=== PATIENT | male | born 1985 | race Caucasian/White ===

== ENCOUNTER 2016-12-09 17:19 | Emergency (ER) | payer OTHER ==
[~2016-12-09] VITALS: Ht 175.3 cm; Wt 101.7 kg
[~2016-12-09 17:19] MED LIST: AMPH10TA2 PO; AMPH30TA2 PO; FLUO20CA35 PO; MTR800 PO; OXYC-57 PO
[2016-12-09 17:23] VITALS: TEMP 36.7; Ht 175.3 cm; Wt 101.7 kg
[2016-12-09] MEDS ORDERED: KETOROLAC TROMETHAMINE 30 MG/ML VIAL IV STA (17:31)
[2016-12-09] MEDS ORDERED: ONDANSETRON INJ 2 MG/ML 2 ML VIAL IV STA (17:31)
[2016-12-09] MEDS ORDERED: SODIUM CHLORIDE 0.9% 1000ML 1,000 ML IV STA (17:31)
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
[2016-12-09] MEDS ORDERED: NAPR250T2 PO (17:44)
[2016-12-09] MEDS ORDERED: MoRPHine SULFATE 4 MG/ML 1 ML CARP\\VIAL IV PRN (17:45)
[2016-12-09] MEDS ORDERED: DEXAMETHASONE SOD INJ 10 MG/ML VIAL IV ONE (17:45)
[2016-12-09 18:03] LABS: BASO % 0.2 %; BASO ABS # 0.02 K/uL (0-0.2); COMPLETE YES; EOS % 0.8 %; HEMATOCRIT 43.9 % (42-52); IG% 0.2 %; LYMPH % 29.6 %; LYMPH ABS # 2.58 K/uL (1.2-3.4); MEAN CELL VOLUME 86.9 fL (80-100); MEAN CORPUSCULAR HEMOGLOBIN 31.1 pg (25-34); MEAN CORPUSCULAR HGB CONC 35.8 g/dl (32-36); MONO % 7.1 %; NEUT % 62.1 %; PLATELET COUNT 280 K/uL (130-400); RED BLOOD COUNT 5.05 M/uL (4.7-6.1); WHITE BLOOD COUNT 8.72 K/uL (4.8-10.8)
[2016-12-09 18:22] LABS: ALT/SGPT 42 U/L (12-78); AST/SGOT 17 U/L (15-37); BLOOD UREA NITROGEN 18 mg/dl (7-18); BUN/CREATININE RATIO 17.6 (10-20); CALCIUM 8.9 mg/dl (8.5-10.1); CARBON DIOXIDE 26 mmol/L (21-32); CHLORIDE 105 mmol/L (98-107); GLUCOSE 93 mg/dl (70-99); POTASSIUM 3.6 mmol/L (3.5-5.1); SODIUM 140 mmol/L (136-145)
[2016-12-09 18:24] LABS: ALKALINE PHOSPHATASE 123 U/L (45-117)
[2016-12-09 18:58] VITALS: BP 136/90; PULSE 67; O2SAT 96
--- NOTE | 2016-12-09 18:59 | DIAGNOSTIC IMAGING REPORT ---
MRI LUMBAR SPINE W/O CONTRAST CLINICAL HISTORY: Persistent severe low back pain, unresponsive to conservative measures TECHNIQUE: Sagittal and axial T1, T2 and STIR images were obtained. COMPARISON STUDY: No previous studies for comparison. OBSERVATIONS: The vertebral bodies and posterior elements appear intact. There is no abnormal bony signal present to suggest a marrow replacement process. L1-2: No disc protrusions or extrusions. No evidence of spinal canal or neural foraminal compromise. L2-3: No disc protrusions or extrusions. No evidence of spinal canal or neural foraminal compromise. L3-4: No disc protrusions or extrusions. No evidence of spinal canal or neural foraminal compromise. L4-5: There is a small right lateral disc bulge/protrusion. There is no spinal stenosis. There is minor right-sided foraminal narrowing. L5-S1: There is a mild circumferential disc bulge. There is no significant spinal or foraminal stenosis. The conus medullaris and cauda equina appear normal. IMPRESSION: 1. Small right lateral disc bulge/protrusion at the L4-5 level with mild right-sided foraminal narrowing 2. Mild circumferential disc bulge the L5-S1 level. 3. No evidence of spinal stenosis 4. No evidence of pathologic marrow replacement Electronically signed by: Hardy Díaz M.D. 12/09/2016 6:57 PM Dictated Date/Time: 12/09/2016 6:54 PM
[2016-12-09] MEDS ORDERED: OXYC1TAB3 PO (19:17)
[2016-12-09] MEDS ORDERED: PRED20TA2 PO (19:17)
[2016-12-09] MEDS ORDERED: OMEP20CA9 PO (19:17)
[2016-12-09] MEDS ORDERED: OXYCODONE IR HOME PACK PO ONE (19:45)
[2017-02-02] MEDS ORDERED: CYCL10TA6 PO (11:12)
[2017-02-02] MEDS ORDERED: ETOD500T95 PO (11:12)
== END 2016-12-09 19:48 | disposition home or self-care (01) ==
LOC: C.EDB 17:20
DX: M51.86 Other intervertebral disc disorders, lumbar region (principal); F17.210 Nicotine dependence, cigarettes, uncomplicated

== ENCOUNTER → 2017-04-20 | Outpatient (CLI) | payer OTHER ==
[~2017-04-20] MED LIST changes: +CYCL10TA6 PO; -FLUO20CA35 PO; -OXYC-57 PO
[2017-04-20 17:37] LABS: BASO % 0.4 %; BASO ABS # 0.04 K/uL (0-0.2); COMPLETE YES; EOS % 1.1 %; HEMATOCRIT 46.2 % (42-52); IG% 0.5 %; LYMPH % 34.6 %; LYMPH ABS # 3.44 K/uL (1.2-3.4); MEAN CELL VOLUME 88.3 fL (80-100); MEAN CORPUSCULAR HGB CONC 35.1 g/dl (32-36); MEAN PLATELET VOLUME 10.3 fL (7.4-10.4); NEUT % 57.4 %; PLATELET COUNT 299 K/uL (130-400); RED BLOOD COUNT 5.23 M/uL (4.7-6.1); WHITE BLOOD COUNT 9.95 K/uL (4.8-10.8)
[2017-04-20 18:22] LABS: BLOOD UREA NITROGEN 15 mg/dl (7-18); BUN/CREATININE RATIO 18.2 (10-20); CARBON DIOXIDE 22 mmol/L (21-32); CHLORIDE 109 mmol/L (98-107); CREATININE 0.84 mg/dl (0.60-1.40); GLUCOSE 137 mg/dl (70-99); SODIUM 142 mmol/L (136-145)
[2017-04-20 18:38] LABS: LYME DISEASE AB IGG NEG (NEG)
[2017-04-20 18:41] LABS: LYME DISEASE AB IGM NEG (NEG)
[2017-04-20 18:42] LABS: CALCIUM 9.6 mg/dl (8.5-10.1)
== END ==
LOC: C.LABPVFM 13:43
PROVIDERS: ATTEND Nurse Practitioner
DX: M25.50 Pain in unspecified joint (principal); R53.83 Other fatigue; M79.1 Myalgia

== ENCOUNTER 2018-06-23 17:43 | Emergency (ER) | payer OTHER ==
[~2018-06-23] VITALS: Ht 175.3 cm; Wt 103.8 kg
[~2018-06-23 17:43] MED LIST changes: -CYCL10TA6 PO; -MTR800 PO; +OXYC-90 PO
[2018-06-23 17:49] VITALS: TEMP 36.9; Ht 175.3 cm; Wt 103.8 kg
[2018-06-23] MEDS ORDERED: HYDROmorphone INJ 1 MG/ML SYR IM STA (18:40)
[2018-06-23] MEDS ORDERED: DEXAMETHASONE INJ 10 MG in SYRINGE 0 ML IM STA (18:40)
[2018-06-23] MEDS ORDERED: KETOROLAC TROMETHAMINE 60 MG/2 ML VIAL IM STA (18:40)
[2018-06-23] MEDS ORDERED: DEXAMETHASONE SOD INJ 10 MG/ML VIAL ONE (18:50)
[2018-06-23] MEDS ORDERED: NORCO 5/325MG HOME PACK PO STA (19:59)
[2018-06-23] MEDS ORDERED: HYDR-5688 PO (20:01)
[2018-06-23] MEDS ORDERED: METH4PAK PO (20:01)
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
[2018-06-23 20:17] VITALS: BP 141/103; PULSE 70; O2SAT 95
== END 2018-06-23 20:18 | disposition home or self-care (01) ==
LOC: C.EDB 17:44 → C.EDD 20:18
DX: M54.5 Low back pain (principal); Z88.2 Allergy status to sulfonamides

== ENCOUNTER 2022-12-27 06:09 | Observation (INO) ==
--- NOTE | 2022-12-09 09:35 | PAT Medication Instructions ---
Medication Instructions Date of Service December 09, 2022 Home Medications Medication Instructions Recorded apixaban 5 mg tablet 5 mg PO BID #60 tabs 05/31/22 cyclobenzaprine 10 mg tablet 10 mg PO TID PRN muscle spasm #90 09/17/22 tabs testosterone cypionate 200 mg/mL 100 mg (0.5 mL) subcut Q7D #2 mL 10/05/22 intramuscular oil escitalopram oxalate 20 mg tablet 20 mg PO HS #90 tabs 10/20/22 gabapentin 400 mg capsule 400 mg PO TID PRN pain #90 caps 10/20/22 buspirone 10 mg tablet 10 mg PO TID PRN anxiety #90 tabs 11/18/22 oxycodone 5 mg tablet 5 - 10 mg PO Q8H PRN pain 30 days 11/18/22 #150 tabs apixaban 5 mg tablet 5 mg PO BID cyclobenzaprine 10 mg tablet 10 mg PO TID PRN muscle spasm testosterone cypionate 200 mg/mL intramuscular oil 100 mg (0.5 mL) subcut Q7D escitalopram oxalate 20 mg tablet 20 mg PO HS gabapentin 400 mg capsule 400 mg PO TID PRN pain buspirone 10 mg tablet 10 mg PO TID PRN anxiety oxycodone 5 mg tablet 5 - 10 mg PO Q8H PRN pain acetaminophen 500 mg tablet 1,000 mg PO Q6H PRN Pain Continue as directed testosterone cypionate 200 mg/mL intramuscular oil 100 mg (0.5 mL) subcut Q7D ASK your prescriber and surgeon apixaban 5 mg tablet 5 mg PO BID DO NOT take the morning of surgery cyclobenzaprine 10 mg tablet 10 mg PO TID PRN muscle spasm Take morning of surgery With a small sip of water, OTHERWISE NOTHING TO EAT OR DRINK AFTER MIDNIGHT: gabapentin 400 mg capsule 400 mg PO TID PRN pain (if needed) buspirone 10 mg tablet 10 mg PO TID PRN anxiety (if needed) oxycodone 5 mg tablet 5 - 10 mg PO Q8H PRN pain (if needed) acetaminophen 500 mg tablet 1,000 mg PO Q6H PRN Pain (if needed) Take evening before surgery cyclobenzaprine 10 mg tablet 10 mg PO TID PRN muscle spasm (if needed) escitalopram oxalate 20 mg tablet 20 mg PO HS gabapentin 400 mg capsule 400 mg PO TID PRN pain (if needed) buspirone 10 mg tablet 10 mg PO TID PRN anxiety (if needed) oxycodone 5 mg tablet 5 - 10 mg PO Q8H PRN pain (if needed) acetaminophen 500 mg tablet 1,000 mg PO Q6H PRN Pain (if needed) Other Notes If you have any questions please call us at [phone] or [phone] or [phone] or [phone]
--- NOTE | 2022-12-13 09:46 | Anesthesiology Consultation ---
Date of Service December 13, 2022 Assessment & Plan (1) Encounter for pre-operative examination: - awaiting PCP clearance. - Case discussed with Dr. Aguilar who advised patient have PCP clearance prior to surgery. Workload note completed. Pt and surgeon's office made aware. Chart Review Chart Review: Pending: Refer to Additional Notes / Consult section and Patient seen in Pre Admission Testing Teaching & Discussion Pre-Anesthesia Teaching/Discussion Notes: Instructed NPO after midnight before surgery, except medications with 15 cc of water. Medication instructions provided according to the PAT guidelines. History Surgery Operation Date: 12/27/22 12:25 Proposed Procedures p C5-C7 Anterior Cervical Discectomy and Fusion, Spinal Cord Monitoring - Denilson Bragg DO Height/Weight Height: 5 ft 9 in Weight: 122.1 kg Allergies Allergy/AdvReac Type Severity Reaction Status Date / Time Sulfa (Sulfonamide Allergy Unknown FAMILY HX Verified 12/08/22 11:37 Antibiotics) OF ALLERGY Medications Home Medications Medication Instructions Recorded Confirmed Last Taken apixaban 5 mg tablet 5 mg PO BID #60 tabs 05/31/22 12/08/22 Unknown cyclobenzaprine 10 mg tablet 10 mg PO TID PRN muscle spasm #90 09/17/22 12/08/22 Unknown tabs testosterone cypionate 200 mg/mL 100 mg (0.5 mL) subcut Q7D #2 mL 10/05/22 12/08/22 Unknown intramuscular oil escitalopram oxalate 20 mg tablet 20 mg PO HS #90 tabs 10/20/22 12/08/22 Unknown gabapentin 400 mg capsule 400 mg PO TID PRN pain #90 caps 10/20/22 12/08/22 Unknown buspirone 10 mg tablet 10 mg PO TID PRN anxiety #90 tabs 11/18/22 12/08/22 Unknown oxycodone 5 mg tablet 5 - 10 mg PO Q8H PRN pain 30 days 11/18/22 12/08/22 Unknown #150 tabs acetaminophen 500 mg tablet 1,000 mg PO Q6H PRN Pain 12/08/22 12/08/22 Unknown Past Medical History Medical History (Updated 12/13/22 @ 10:00 by Lroeto Monroy PA-C) Anticoagulated eliquis bid for hx of renal blood clot in 2020 Cervical radicular pain Chronic headaches Depression with anxiety Fatty liver pt states he quit drinking almost 3 yrs ago GERD (gastroesophageal reflux disease) if eats spicy foods late Hearing loss in right ear History of renal vein thrombosis pt states happened in 2020 "they think due to narrowing of blood vessels to my kidney"--admitted to [facility] in [place], [place] for 1 wk--reason for eliquis Hypertension averages elevated readings, denies current antihypertensives Kidney stone hx of Perirectal abscess hx of ? PTSD (post-traumatic stress disorder) Sleep apnea hx of prior to UPP--pt states he does not use any device Tinnitus of both ears Patient denies h/o stroke, seizures, heart attack, heart failure, DM or blood transfusions. Exercise / Class Metabolic Activity II 4-5 Yardwork/Stairs/Walk up hill (shortness of breath walking up a hill ongoing x 1 yr; denies change or worsening; denies chest discomfort) Past Family History Family History Other No family history of adverse response to anesthesia Denies family history of Ovarian cancer Prostate cancer Myocardial infarction Breast cancer Colorectal cancer Past Surgical History Surgical History History of appendectomy History of excision of pilonidal cyst ? pt unsure History of incision and drainage ? pt unsure History of tonsillectomy @ same time as UPP History of uvulopalatopharyngoplasty History of wisdom tooth extraction Hx of vasectomy Past Anesthesia History No Hx of Anesthesia Complications and No Family Hx of Anesthesia Complications History of PONV No Hx of PONV and No Hx of Motion Sickness Social History Smoking Status: Current every day smoker tobacco type: cigarettes Smoking cigarettes per day: 20 a day (advised on policy) Do You Dip or Chew Tobacco: No Hx Alcohol Use: No (quit drinking almost 3 yrs ago) Hx Substance Use: Yes (smokes marijuana intermittently for anxiety) substance use type: marijuana Last Used Substance: Unknown Last Used Substance Other:: last used at least 4 months ago (advised on policy) Review of Systems Patient denies chest pain, fever, chills, cough, wheezing, or palpitations. Physical Exam Vital Signs Vitals BP 144/91 P 87 TEMP 98.7 SP02 95% on RA RESP 17 Physical Full cervical extension range of motion without pain TMD 3.5 finger breadths Mallampati Score 3 Dentition: several chipped teeth; denies loose teeth, caps/crowns, implants or bridges Lungs: normal respiratory effort. Clear throughout to auscultation, no adventitious breath sounds Cardiac: regular rate and rhythm, no murmurs noted Carotid arteries: negative bruit bilat Lab Results Anesthesia Preop Results Results Anesthesia Widget: WBC 8.84 K/ul (4.8-10.8) 12/13/22 Hgb 17.1 g/dl (14.0-18.0) 12/13/22 Hct 49.8 % (42.0-52.0) 12/13/22 Plt 288 K/uL (130-400) 12/13/22 Na 138 mmol/L (136-145) 12/13/22 K 3.6 mmol/L (3.5-5.1) 12/13/22 Cl 105 mmol/L (98-107) 12/13/22 CO2 27 mmol/L (21-32) 12/13/22 BUN 8 mg/dl (6-23) 12/13/22 Creat 0.90 mg/dl (0.6-1.4) 12/13/22 Glucose Level 102 mg/dl (70-99(Fasting)) H 12/13/22 PT 10.3 Seconds (9.0-12.0) 12/13/22 PTT 29.1 Seconds (21.0-31.0) 12/13/22 INR 1.0 (0.9-1.1) 12/13/22 Urine Color Yellow 12/13/22 Urine Appearance Clear (Clear) 12/13/22 Urine pH 6.0 (4.5-7.5) 12/13/22 Urine Specific [place] 1.022 (1.000-1.030) 12/13/22 Urine Protein Negative (Negative) 12/13/22 Urine Glucose (UA) Negative (Negative) 12/13/22 Urine Ketones Trace (Negative) H 12/13/22 Urine Blood Negative (Negative) 12/13/22 Urine Nitrite Negative (Negative) 12/13/22 Urine Bilirubin Negative (Negative) 12/13/22 Urine Urobilinogen Negative (Negative) 12/13/22 Urine Leukocyte Esterase Negative (Negative) 12/13/22 Blood Type O Positive 12/13/22 Antibody Screen NEGATIVE 12/13/22 Testing Electrocardiogram Date: 12/13/22 NSR with sinus arrhythmia, rate 86 bpm Chest X-Ray Date: 12/13/22 Lung volumes are normal. Lungs are clear. There is no pneumothorax or pleural effusion. Cardiac size is normal. Mediastinal contours are normal. There is no evidence for pulmonary edema. IMPRESSION: No acute cardiopulmonary findings. Echocardiogram Date: 04/21/21 EF 55-60% Normal LV wall motion Septal motion is consistent with conduction abnormality No hemodynamically significant valvular disease is present Cervical Spine Date: 09/09/22 MRI Stable straightened cervical alignment with persistent bony discogenic degenerative changes at C3-4, C4-5, C5-6, C6-7 Disc bulge-osteophyte complexes at C4-5, C5-6, C6-7 contact or flatten ventral cervical cord and contributes to severe central spinal canal stenosis at these levels COVID-19 Risk Screen Screening Information COVID-19 Screen Date: 12/13/22 Exposure 21 Days Family/Household +COVID Last 21 Days: No Exposure 10 Days Any COVID Exposure Last 10 Days: No Symptoms Last 10 Days Experienced COVID Sx Last 10 Days: No + COVID 0-90 Days COVID + in Last 0-90 Days: No
[~2022-12-27 06:09] MED LIST changes: +ACETAMINOPHEN 500 MG TAB PO SCH; -AMPH10TA2 PO; -AMPH30TA2 PO; +CeleBREX 200 MG CAP PO SCH; +GABAPENTIN 900 MG DOSE PO SCH; +LR 15ML/HR IV SCH; -OXYC-90 PO; +ceFAZolin 2000MG 2,000 MG/15 ML SYR IV SCH
[2022-12-27] MEDS ORDERED: LIDOCAINE 2% JELLY 5 ML TUBE EXT ONE (06:53)
[2022-12-27] MEDS ORDERED: fentaNYL citrate 100 MCG/2 ML VIAL ONE (07:06)
[2022-12-27] MEDS ORDERED: MIDAZOLAM HCL 1 MG/ML 2ML VIAL ONE (07:06)
[2022-12-27] MEDS ORDERED: KETAMINE 50 MG/5 ML SYRINGE ONE (07:06)
[2022-12-27] MEDS ORDERED: ceFAZolin 330 MG/ML 1 GM VIAL ONE (07:33)
--- NOTE | 2022-12-27 07:33 | History & Physical Bridge Note ---
Date of Service December 27, 2022 History & Physical Bridge Note I have examined the patient, reviewed the History & Physical and in the interval since the performance of the History & Physical I have noted the following changes of clinical significance: no changes noted
--- NOTE | 2022-12-27 07:35 | History & Physical Report ---
Date of Service December 27, 2022 Assessment & Plan (1) Cervical stenosis of spinal canal: Plan: C5-C7 anterior cervical discectomy and fusion History of Present Illness Chief Complaint: Neck and arm pain Primary Care Provider: Bhupinder Ackerman DO This is a 37-year-old male who presents with chronic persistent neck and arm pain after failing course of nonoperative care is here for surgical invention. Allergies Allergy/AdvReac Type Severity Reaction Status Date / Time No Known Allergies Allergy Unverified 12/27/22 06:45 Home Medications Medication Instructions Recorded Confirmed Type cyclobenzaprine 10 mg tablet 10 mg PO TID PRN muscle spasm #90 09/17/22 12/27/22 Rx tabs testosterone cypionate 200 mg/mL 100 mg (0.5 mL) subcut Q7D #2 mL 10/05/22 12/27/22 Rx intramuscular oil gabapentin 400 mg capsule 400 mg PO TID PRN pain #90 caps 10/20/22 12/08/22 Rx buspirone 10 mg tablet 10 mg PO TID PRN anxiety #90 tabs 11/18/22 12/27/22 Rx acetaminophen 500 mg tablet 1,000 mg PO Q6H PRN Pain 12/08/22 12/08/22 History oxycodone 5 mg tablet 5 - 10 mg PO Q8H PRN pain 30 days 12/17/22 12/27/22 Rx #150 tabs apixaban 5 mg tablet (Eliquis) 5 mg PO BID 12/27/22 12/27/22 History escitalopram oxalate 20 mg tablet 20 mg PO DAILY 12/27/22 12/27/22 History (Lexapro) Past Med/Surg History Medical History (Updated 12/27/22 @ 07:34 by Denilson Bragg DO) Anticoagulated eliquis bid for hx of renal blood clot in 2020 Cervical radicular pain Chronic headaches Depression with anxiety Fatty liver pt states he quit drinking almost 3 yrs ago GERD (gastroesophageal reflux disease) if eats spicy foods late Hearing loss in right ear History of renal vein thrombosis pt states happened in 2020 "they think due to narrowing of blood vessels to my kidney"--admitted to [facility] in [place], [place] for 1 wk--reason for eliquis Hypertension averages elevated readings, denies current antihypertensives Kidney stone hx of Perirectal abscess hx of ? PTSD (post-traumatic stress disorder) Sleep apnea hx of prior to UPP--pt states he does not use any device Tinnitus of both ears Surgical History History of appendectomy History of excision of pilonidal cyst ? pt unsure History of incision and drainage ? pt unsure History of tonsillectomy @ same time as UPP History of uvulopalatopharyngoplasty History of wisdom tooth extraction Hx of vasectomy Family History Other No family history of adverse response to anesthesia Denies family history of Ovarian cancer Prostate cancer Myocardial infarction Breast cancer Colorectal cancer Social History Smoking Status: Current every day smoker Tobacco Type: Cigarettes Age Started Using Tobacco: 18; packs per day: 1; Cigarettes Per Day: 20; Second Hand Exposure: No; Do You Dip or Chew Tobacco: No; Tobacco Cessation Education Requested by Patient: No Hx Alcohol Use: No Hx Substance Use: No Preferred Language: Kittitian Communication Ability: Effective Visual Impairment: No Limitations Hearing Ability: Normal Product Safety Expert Required: No Beliefs That Will Affect Care: None marital status: Single Current Living Situation: Family Current Living Situation Comment: Lives with Step Dad and son. current occupational status: employed current occupation: Self Employed How many Children do You have: 1 Other Information That Helps Us Care for You: No Feels Safe at Home: Yes Safety Concerns: Feels Safe At This Time Childhood Exposure to Second-Hand Smoke: Yes caffeine: Yes (Engery Drinks) during the past year weight has: remained stable Dental Care, Regularly: No Physical Activity Frequency: Does not Exercise Seatbelt Use: always Sunscreen Use: No Do you think of yourself as: straight/heterosexual Sexual Activity: has been sexually active, but not for at least 12 months Gender Identity: Male Assistive Devices: None Physical Exam Physical Exam: Patient is alert and oriented Heart regular rhythm Lungs clear Results & Data Results & Data ([facility]) Vital Signs (Past 12 Hours) Vital Signs Temp Pulse Resp BP Pulse Ox O2 Del Method 12/27/22 06:46 37.0 C 91 H 20 162/100 H 96 Room Air
[2022-12-27] MEDS ORDERED: ePHEDrine sulfate 50 MG/ML AMP IV PRN (07:42)
[2022-12-27] MEDS ORDERED: ATROPINE SULFATE 0.1 MG/ML 10ML SYR IV PRN (07:42)
[2022-12-27] MEDS ORDERED: ONDANSETRON INJ 2 MG/ML 2 ML VIAL IV PRN ×2 (07:42→11:09)
[2022-12-27] MEDS ORDERED: HYDROmorphone INJ 2 MG/ML SYR/VIAL ONE (08:18)
[2022-12-27] MEDS ORDERED: ROCURONIUM BROMIDE 10 MG/ML 5 ML VIAL IV ONE (08:18)
[2022-12-27] MEDS ORDERED: FLOSEAL HEMOSTATIC MATRIX 10ML TOP ONE (08:34)
[2022-12-27] MEDS ORDERED: DEXAMETHASONE SOD INJ 4 MG/ML VIAL ONE (08:54)
[2022-12-27] MEDS ORDERED: ePHEDrine sulfate 50 MG/ML SYR ONE (08:54)
[2022-12-27] MEDS ORDERED: ONDANSETRON INJ 2 MG/ML 2 ML VIAL ONE (08:54)
[2022-12-27] MEDS ORDERED: PHENYLEPHRINE HCL 10 MG/ML VIAL ONE (08:54)
[2022-12-27] MEDS ORDERED: PHENYLEPHRINE 100MCG/ML 5ML SYR ONE (08:54)
[2022-12-27] MEDS ORDERED: SUCCINYLCHOLINE CHLORIDE 20 MG/ML 10 ML VIAL IV ONE (08:54)
[2022-12-27] MEDS ORDERED: SUGAMMADEX SODIUM 200 MG/2 ML VIAL IV ONE (09:28)
--- NOTE | 2022-12-27 09:32 | Operative Report ---
Post Operative Report Pre & Post Diagnosis Operation Date: 12/27/22 07:45 Pre-Op Diagnosis: Cervical stenosis with radiculopathy Morbid obesity Post-Op Diagnosis: Same I identified the patient and participated in the time-out.: Yes Procedure Operation Date: 12/27/22 07:45 Actual Procedures #1 anterior wound care technician discectomy with bilateral foraminotomies C5-C6 C6-C7. #2 anterior cervical disc at C5-C6 C6-C7. #3 placement of Spira 8 mm cage filled with I factor at C5-C6 C6-C7. #4 placement of K2 M plate and screws from C5-C6. Surgeon Denilson Bragg, Scratch Finisher Amanda Ramos Estimated Blood Loss 20 Findings See Below The patient is 5 foot 9 weighing over 120 kg with a BMI in excess of 39. The patient's body was did contribute to significant technical difficulty with positioning and exposure. This at least 50% increased operative time. Specimens None Indications This is a 37-year-old male who presents above-mentioned diagnosis after failing course of nonoperative care he is here for surgical intervention. Description of Procedure Patient was met with identified informed consent obtained. Patient was then taken to the operative suite underwent patient placed in supine position Blas table head Gutierrez lateral. All bony prominences well-padded eyes inspected to ensure no external pressure placed upon them. This point the anterior cervical spine was prepped and draped in normal sterile fashion. With the assistance of fluoroscopy identified the C6 vertebral body and a transverse incision was placed along the right anterior aspect of the cervical spinal lines region. Blunt dissection with assistance of bipolar electrocautery was then performed down to and exposing the anterior cervical spine from C5-C7. A self-retaining retractors placed. Then performed a complete discectomy of C5-C6 out to the uncovertebral joints bilaterally. Honeydew distractor pins utilized to assist in visualization. Removed all posterior annular fibers longitudinal ligament bilateral foraminotomies performed an 8 mm spiral cage with I factor tapped in position. Then proceeded to C6-C7. Again complete discectomy performed endplates curetted to subcortical bleeding bone Honeydew distracting pins again utilized. Removed all posterior annular fibers longitudinal ligament bilateral foraminotomies performed and a 8 mm spiral cage with I factor tapped in position. Distracting apparatus was removed all anterior osteophytes produce with cortical surface and a K2 M plate and screws applied with the assistance of fluoroscopy. The incision was then copiously irrigated explored to ensure no damage to surrounding structures or remaining bleeding. 10 round drape drain inserted. Incision was then closed with 2 Vicryl in a fashion of 4 Monocryl for final skin closure. Steri-Strip sterile dressings placed. Patient waken taken to PACU in stable condition. Please note spinal cord monitoring was utilized at the procedure no changes noted. Lastly Amanda Ramos was present at the entire procedure and all the patient positioning complex portions of the surgery and final skin closure. I attest to the content of the Intraoperative Record and any orders documented therein. Any exceptions are noted below.
[2022-12-27] MEDS: fentaNYL citrate 100 MCG/2 ML VIAL IV PRN ×4 (09:55→10:10)
--- NOTE | 2022-12-27 10:06 | Fluoroscopy Report ---
FL cervical 2-3V CLINICAL HISTORY: C5-C7 ACDF TECHNIQUE: 3 views were obtained with the C-arm in the OR with the above procedure. Total fluoroscopy time was 15.4 seconds. Radiation dose was 8.07 mGy. Comparison: None available at the time of this dictation. FINDINGS/IMPRESSION: Intraoperative images were obtained of ACDF. Please correlate with intraoperative fluoroscopy and operative report. ACT 112: Negative or not required by law. Electronically signed by: Wero Macias M.D. 12/27/2022 10:04 AM
[2022-12-27] MEDS: HYDROmorphone INJ 2 MG/ML SYR/VIAL IV PRN ×4 (10:16→10:39)
--- NOTE | 2022-12-27 10:31 | Anesthesiology Progress Note ---
Date of Service December 27, 2022 Anesthesia Post Procedure Vital Signs Vital Signs: Temp Pulse Resp BP Pulse Ox O2 Del Method O2 Flow Rate 12/27/22 10:00 85 19 114/89 96 Oxymask 5 12/27/22 10:20 97.2 F L 76 11 L 142/78 H 95 Room Air 12/27/22 10:10 72 12 157/87 H 96 Oxymask 5 12/27/22 09:50 82 18 134/81 92 Oxymask 5 12/27/22 09:41 97.5 F L 83 24 149/76 H 97 Oxymask 15 12/27/22 06:46 98.6 F 91 H 20 162/100 H 96 Room Air Pain Intensity Neck: Pain Intensity: 4 Transfer of Care Handoff Completed per policy Notes Mental Status: alert / awake / arousable and participated in evaluation Patient Amnestic to Procedure: Yes Nausea / Vomiting: adequately controlled Pain: adequately controlled and improving with treatment Airway Patency, RR, SpO2: stable & adequate BP & HR: stable & adequate Hydration State: stable & adequate Anesthetic Complications: no major complications apparent and Pt Satisfied with anesthetic care
[2022-12-27] MEDS ORDERED: HYDROmorphone INJ 0.5 MG/0.5 ML SYR IV PRN (11:09)
[2022-12-27] MEDS ORDERED: ALUMINUM/MAGNESIUM SUSP 30 ML UDC PO PRN (11:09)
[2022-12-27] MEDS ORDERED: DO NOT ADMINISTER FLU VACCINE PRN (11:09)
[2022-12-27] MEDS ORDERED: RACEPINEPHRINE 2.25% NEBU SOLN 0.5 ML VIAL INH PRN (11:09)
[2022-12-27] MEDS ORDERED: METOCLOPRAMIDE HCL INJ 5 MG/ML 2 ML VIAL IV PRN (11:09)
[2022-12-27] MEDS ORDERED: PROMETHAZINE HCL 12.5 MG in SODIUM CHLORIDE 0.9% 50 ML IV PRN (11:09)
[2022-12-27] MEDS ORDERED: SOD PHOSPHATE/SOD BIPHOSPHATE ENEMA 132 ML BTL PR PRN (11:09)
[2022-12-27] MEDS ORDERED: hydrOXYzine HCl 25 MG TAB PO PRN (11:09)
[2022-12-27] MEDS ORDERED: NALOXONE HCL 0.4 MG/1 ML VIAL/CARP IV PRN (11:09)
[2022-12-27] MEDS ORDERED: LORazepam 0.5 MG TAB PO PRN (11:09)
[2022-12-27] MEDS ORDERED: bisacodyL 10 MG SUPP PR PRN (11:09)
[2022-12-27] MEDS ORDERED: GABAPENTIN 400 MG CAP PO PRN (11:09)
[2022-12-27] MEDS ORDERED: busPIRone 5 MG TAB PO PRN (11:09)
[2022-12-27] MEDS ORDERED: LORazepam 2 MG/1 ML VIAL IV PRN (11:09)
[2022-12-27] MEDS ORDERED: MAGNESIUM HYDROXIDE SUSP 30 ML UDC PO PRN (11:09)
[2022-12-27] MEDS ORDERED: ACETAMINOPHEN 500 MG TAB PO PRN (11:09)
[2022-12-27] MEDS ORDERED: FAMOTIDINE 20 MG TAB PO PRN (11:09)
[2022-12-27] MEDS ORDERED: DO NOT ADMINISTER PNEUMOCOCCAL VACCINE PRN (11:09)
[2022-12-27] MEDS ORDERED: dexAMETHasone 8 MG in SYRINGE 0 ML IV PRN (11:09)
[2022-12-27] MEDS ORDERED: ONDANSETRON 4 MG OD TAB PO PRN (11:09)
[2022-12-27] MEDS ORDERED: ACETAMINOPHEN 1,000 MG/100 ML VIAL IV PRN (11:09)
[2022-12-27] MEDS ORDERED: diphenhydrAMINE Capsule 25 MG CAP PO PRN (11:09)
[2022-12-27] MEDS: HYDROmorphone INJ 1 MG/ML SYRINGE IV PRN ×4 (11:18→22:00)
[2022-12-27] MEDS: LACTATED RINGER'S 1,000 ML IV SCH ×3 (11:21→23:39)
[2022-12-27] MEDS: oxyCODONE HCL IR 5 MG TAB (IMMEDIATE RELEASE) PO PRN ×2 (12:27→17:47)
[2022-12-27] MEDS: ceFAZolin 2000MG 2,000 MG/15 ML SYR IV SCH ×2 (15:24→23:39)
[2022-12-27] MEDS: traMADol HCL 50 MG TABLET PO PRN (16:53)
[2022-12-27] MEDS: NICOTINE 21 MG/24 HR TDSY TD SCH (17:44)
[2022-12-27] MEDS ORDERED: DOCUSATE SODIUM/SENNA 50/8.6MG TAB PO SCH (21:00)
[2022-12-28] MEDS: HYDROmorphone INJ 1 MG/ML SYRINGE IV PRN ×3 (01:06→07:33)
[2022-12-28] MEDS ORDERED: POLYETHYLENE (MIRALAX) 17 GM PACK PO SCH (06:00)
[2022-12-28] MEDS: NICOTINE 21 MG/24 HR TDSY TD SCH (07:11)
[2022-12-28] MEDS: traMADol HCL 50 MG TABLET PO PRN (07:12)
--- NOTE | 2022-12-28 08:30 | Discharge Summary ---
Date of Service December 28, 2022 Admission HPI Per Admitting Provider This is a 37-year-old male who presents with chronic persistent neck and arm pain after failing course of nonoperative care is here for surgical invention. Principal Diagnosis Cervical radiculopathy Discharge Data Allergies Allergy/AdvReac Type Severity Reaction Status Date / Time No Known Allergies Allergy Unverified 12/27/22 06:45 Procedures Performed Operation Date: 12/27/22 07:45 Actual Procedures p C5-C7 Anterior Cervical Discectomy and Fusion, Spinal Cord Monitoring(Bilateral) - Denilson Bragg DO Ordered Studies 12/27/22 [place] cervical 2-3V Routine Hospital Course (1) Cervical stenosis of spinal canal: Patient underwent anterior cervical discectomy fusion tolerated this well was taken to orthopedic for postoperative. Postoperatively swallowing well. No hoarseness. WU drain decreasing appropriate. Excellent strength testing. Subsequent discharge home. Discharge orders and instructions found in the chart for further review. Total Time Total Time Spent Total Time Spent (In Minutes): 20 minutes Discharge Plan Discharge Items Patient Disposition: Home - Self-Care Reason For Visit: Spinal Stenosis Cervical Region Discharge Diagnosis: Cervical stenosis with radiculopathy Activity: As commented below Non-emergency contact: Primary Care Provider Call non-emergency contact if: you have any medication questions Follow-up/Referrals: Bhupinder Ackerman DO [Primary Care Provider] - Diet: Regular Addtl Attending Provider Instructions: ACTIVITY RECOMMENDATIONS: SELF CARE INSTRUCTIONS AFTER CERVICAL FUSIONS 1. No smoking. Smoking drastically decreases the chance of a solid fusion. 2. No bending, lifting more than 5 pounds, or twisting (roll like a log when turning in bed). 3. You may shower 3 days after surgery. Thoroughly dry wound. Do not soak in the tub. 4. Cervical collar: Must be worn at all times including sleeping. You may remove the brace only to bath, eat and if you are sitting in a recliner. 5. Please walk as much as you can for exercise. Gradually increase the distance that you walk as your endurance increases. SPECIAL CARE INSTRUCTIONS: VERY IMPORTANT TO READ AND REVIEW A. Do not take any anti-inflammatory medications (i.e. Indocin, Advil, Aspirin, Naprosyn, Aleve, Motrin, etc.) as these may inhibit the chance of a solid fusion. Tylenol is okay to take. B. Your surgical incision has been closed with a cosmetic suture under the skin that will dissolve in about 6 weeks. In 14 days, you can use a pair of clean scissors and cut the suture that is left outside of the skin at the ends of your incision. C. Complications are uncommon, but please contact us if you have any signs or symptoms of: 1. wound infection (fever higher than 102.5 degrees F, redness, separation of wound, drainage, or increasing pain from the incision) 2. blood clots in legs (pain, swelling, redness and warmth in legs) 3. urinary tract infection (fever higher than 102.5 degrees, burning upon urination or increased frequency of urination) 4. nerve problems (inability to walk on your toes or heels, numbness, loss of bowel or bladder control) 5. any other symptoms that concern you. D. Please call the office at if you have any concerns or questions about your operation or recovery. MANAGING PAIN AFTER SPINAL SURGERY 1. Narcotic medication is intended for short-term use and will be provided for surgical pain. Surgical pain usually lasts for a period of 4-6 weeks. Narcotic medication includes Percocet, Vicodin, Darvocet, Tylenol #3 or Lortab. 2. Longer-term pain is more appropriately treated with non-narcotic medication such as Tylenol ES. 3. Muscle spasm is not appropriately treated with narcotics. Muscle relaxers such as Soma, Flexeril or Skelaxin can be used along with Tylenol ES. 4. Remember that we all live with some "aches and pains". This is not unusual or uncommon after an injury or as we get older. 5. We will provide appropriate medication within the normal guidelines of their prescribed use. We will also be very cautious and aware of potential abuse and extended duration of patients' medication needs. 6. Please allow 2-3 days to process refills. Prescriptions will not be mailed but must be picked up at the office. FOLLOW UP VISIT: Keep your scheduled follow-up appointment. Any questions, please call the office at . Pending Studies at Discharge: No Stand-Alone Forms: [employer], Smoking Cessation Medications and [place] Order Prescriptions: New oxycodone 5 mg tablet 5 mg PO Q6H PRN (Reason: pain, severe) Qty: 30 0RF tramadol 50 mg tablet 50 mg PO Q6H PRN (Reason: pain, moderate) Qty: 30 0RF Continued testosterone cypionate 200 mg/mL oil 100 mg subcut Q7D Qty: 2 5RF gabapentin 400 mg capsule 400 mg PO TID PRN (Reason: pain) Qty: 90 5RF oxycodone 5 mg tablet 5 - 10 mg PO Q8H MDD 5 tablets PRN (Reason: pain) 30 Days Qty: 150 0RF Rx Instructions: PDMP searched, last filled on 11/19/22 for 30 days, DNFB 12/19/22 buspirone 10 mg tablet 10 mg PO TID PRN (Reason: anxiety) Qty: 90 5RF Patient Comments: pt states on 12/08/22 he takes TID not prn cyclobenzaprine 10 mg tablet 10 mg PO TID PRN (Reason: muscle spasm) Qty: 90 5RF acetaminophen 500 mg Tablet 1,000 mg PO Q6H PRN (Reason: Pain) escitalopram oxalate [Lexapro] 20 mg tablet 20 mg PO DAILY Eliquis 5 mg tablet 5 mg PO BID Discharge Orders: Discharge Order (Routine); Ordered 12/28/22 Ordered By: Denilson Bragg Admission Data Admit Date/Time: 12/27/22 09:36 Attending Provider: Denilson Bragg Admit Provider: Denilson Bragg Primary Care Provider: Bhupinder Ackerman
[2022-12-28] MEDS ORDERED: dexAMETHasone 6 MG in SYRINGE 0 ML IV SCH (09:00)
[2022-12-28] MEDS ORDERED: ESCITALOPRAM OXALATE 20 MG TAB PO SCH (09:00)
== END 2022-12-28 11:08 | disposition home or self-care (01) | DRG 473 ==
LOC: ASU 06:09 → 3E 09:36 → INTOOBSV 09:36